=== PATIENT | male | born 1975 | race Caucasian/White ===

== ENCOUNTER 2017-02-05 16:49 | Observation (INO) | payer SELFPAY ==
[~2017-02-05] VITALS: Ht 172.7 cm; Wt 82.0 kg
[~2017-02-05 16:49] MED LIST: Z.0.NO CURRENT MEDS
[2017-02-05 17:08] VITALS: BP 158/108; PULSE 92; RESP 18; TEMP 98.5; O2SAT 98
--- NOTE | 2017-02-05 18:22 | PD ---
HPI Chief Complaint: Psychiatric Symptoms Time Seen by Provider: 18:16 Travel History International Travel<30 days: No Contact w/Intl Traveler<30days: No History of Present Illness HPI 41-year-old male presents to the emergency department as a transfer from [facility] for psychiatric evaluation. Patient was placed under a Carvalho act by the physician there. According to the patient, he has been having rectal bleeding for the past 2 days. He states they did not work him up for this. He states that he started with some epigastric pain that radiates to the right lower quadrant 2 days ago. He states that he was drinking for the past 2 days heavily to help with the pain. He denies any suicidal ideations to me stating that he was joking when he said "how much alcohol will it take to kill me". The patient does report some bright red and dark red bleeding from the rectum for 2 days. He states he has not had this before. He does not take NSAIDs as he states he is allergic to him. He states that he does not typically drink heavily and this was a rare occurrence. He denies any fevers or chills. No chest pain or shortness of breath. Platelets of 9 out of 10 epigastric abdominal pain that radiates to the right lower quadrant with associated nausea and vomiting. He states that his vomit looks different is unsure if he could have blood in it as well. The patient reports multiple allergies including to most pain medications as well as IV contrast. Severity is moderate. No exacerbating or alleviating factors. PFSH Past Medical History Cardiac Catheterization: Yes (2004) Musculoskeletal: Yes (WEARS A BRACE TO R KNEE FOR TORN MENISCUS) Past Surgical History Appendectomy: Yes Social History Alcohol Use: Yes (ONCE WEEKLY) Tobacco Use: Yes (1-2 PPD X 22 YEARS) Substance Use: No Allergies-Medications (Allergen,Severity, Reaction): Coded Allergies: Iodinated Contrast- Oral and IV Dye (Verified Allergy, Unknown, 02/05/17) NSAIDS (Non-Steroidal Anti-Inflamma (Verified Allergy, Unknown, 02/05/17) carbamazepine (Verified Allergy, Unknown, Swelling, 02/05/17) dicyclomine (Verified Allergy, Unknown, Swelling, 02/05/17) divalproex sodium (Verified Allergy, Unknown, Rash, 02/05/17) ketorolac (Verified Allergy, Unknown, Swelling, 02/05/17) levetiracetam (Verified Allergy, Unknown, Swelling, 02/05/17) metronidazole (Verified Allergy, Unknown, Rash, 02/05/17) morphine (Verified Allergy, Unknown, Rash, 02/05/17) nalbuphine (Verified Allergy, Unknown, Swelling, 02/05/17) phenobarbital (Verified Allergy, Unknown, Swelling, 02/05/17) phenytoin (Verified Allergy, Unknown, vomiting, 02/05/17) prochlorperazine (Verified Allergy, Unknown, Swelling, 02/05/17) tramadol (Verified Allergy, Unknown, Rash, 02/05/17) Reported Meds & Prescriptions Reported Meds & Active Scripts Active Reported No Current Meds (Miscellaneous Medication) Misc Review of Systems Except as stated in HPI: all other systems reviewed are Neg Physical Exam Narrative GENERAL: Well-nourished, well-developed male patient, afebrile. SKIN: Focused skin assessment warm/dry. HEAD: Normocephalic. Atraumatic. EYES: No scleral icterus. No injection or drainage. NECK: Supple, trachea midline. No JVD or lymphadenopathy. CARDIOVASCULAR: Regular rate and rhythm without murmurs, gallops, or rubs. RESPIRATORY: Breath sounds equal bilaterally. No accessory muscle use. Lungs sounds are clear to auscultation. GASTROINTESTINAL: Abdomen soft and nondistended. He has tenderness throughout the abdomen upon palpation. MUSCULOSKELETAL: No cyanosis, or edema. BACK: Nontender without obvious deformity. No CVA tenderness. RECTAL EXAM: No masses or tenderness. This exam was done with RN at bedside. Hemoccult is positive. Data Data Last Documented VS Vital Signs Date Time Temp Pulse Resp B/P (MAP) Pulse Ox O2 Delivery O2 Flow Rate FiO2 02/05/17 19:27 88 16 169/112 (131) 99 Room Air 02/05/17 17:08 98.5 Orders Orders Complete Blood Count With Diff (02/05/17 18:16) Comprehensive Metabolic Panel (02/05/17 18:16) Lipase (02/05/17 18:16) Prothrombin Time / Inr (Pt) (02/05/17 18:16) Act Partial Throm Time (Ptt) (02/05/17 18:16) Urinalysis - C+S If Indicated (02/05/17 18:16) Ct Abd/Pel W/O Iv Contrast (02/05/17 18:16) Iv Access Insert/Monitor (02/05/17 18:16) Ecg Monitoring (02/05/17 18:16) Oximetry (02/05/17 18:16) Pantoprazole Inj (Protonix Inj) (02/05/17 18:30) Sodium Chloride 0.9% Flush (Ns Flush) (02/05/17 18:30) Electrocardiogram (02/05/17 18:16) Sodium Chlor 0.9% 1000 Ml Inj (Ns 1000 M (02/05/17 18:30) Alcohol (Ethanol) (02/05/17 18:22) Acetamin-Hydrocod 325-5 Mg (Bartley 5-325 (02/05/17 19:45) Ondansetron Inj (Zofran Inj) (02/05/17 20:45) Admit Order (Ed Use Only) (02/05/17 20:56) ^ Sitter (02/05/17 20:56) Labs Laboratory Tests Test 02/05/17 18:30 02/05/17 19:30 White Blood Count 5.1 TH/MM3 Red Blood Count 4.02 MIL/MM3 Hemoglobin 10.5 GM/DL Hematocrit 31.1 % Mean Corpuscular Volume 77.5 FL Mean Corpuscular Hemoglobin 26.2 PG Mean Corpuscular Hemoglobin Concent 33.8 % Red Cell Distribution Width 18.4 % Platelet Count 409 TH/MM3 Mean Platelet Volume 7.5 FL Neutrophils (%) (Auto) 54.9 % Lymphocytes (%) (Auto) 33.3 % Monocytes (%) (Auto) 8.9 % Eosinophils (%) (Auto) 1.6 % Basophils (%) (Auto) 1.3 % Neutrophils # (Auto) 2.8 TH/MM3 Lymphocytes # (Auto) 1.7 TH/MM3 Monocytes # (Auto) 0.4 TH/MM3 Eosinophils # (Auto) 0.1 TH/MM3 Basophils # (Auto) 0.1 TH/MM3 CBC Comment DIFF FINAL Differential Comment Prothrombin Time 9.7 SEC Prothromb Time International Ratio 0.9 RATIO Activated Partial Thromboplast Time 25.0 SEC Blood Urea Nitrogen 12 MG/DL Creatinine 0.92 MG/DL Random Glucose 103 MG/DL Total Protein 7.1 GM/DL Albumin 3.7 GM/DL Calcium Level 8.6 MG/DL Alkaline Phosphatase 99 U/L Aspartate Amino Transf (AST/SGOT) 33 U/L Alanine Aminotransferase (ALT/SGPT) 49 U/L Total Bilirubin 0.3 MG/DL Sodium Level 136 MEQ/L Potassium Level 3.9 MEQ/L Chloride Level 104 MEQ/L Carbon Dioxide Level 23.8 MEQ/L Anion Gap 8 MEQ/L Estimat Glomerular Filtration Rate 91 ML/MIN Lipase 370 U/L Ethyl Alcohol Level LESS THAN 3 MG/DL Urine Color LIGHT-YELLOW Urine Turbidity CLEAR Urine pH 6.5 Urine Specific [place] 1.015 Urine Protein NEG mg/dL Urine Glucose (UA) NEG mg/dL Urine Ketones NEG mg/dL Urine Occult Blood NEG Urine Nitrite NEG Urine Bilirubin NEG Urine Urobilinogen LESS THAN 2.0 MG/DL Urine Leukocyte Esterase NEG Urine RBC 1 /hpf Urine WBC 1 /hpf Urine Amorphous Sediment RARE Microscopic Urinalysis Comment CULT NOT INDICATED MDM Medical Decision Making Medical Screen Exam Complete: Yes Emergency Medical Condition: Yes Medical Record Reviewed: Yes Interpretation(s) Last Impressions Abdomen/Pelvis CT 02/05/171815 Signed Impressions: Service Date/Time: Friday, February 05, 2017 19:03 - CONCLUSION: 1. Numerous bilateral hyperdense round lesions in both kidneys measuring up to 1.4 cm could represent hyperdense cysts or solid lesions. 2. Otherwise negative noncontrast CT abdomen/pelvis. Demetrio Mcgowan MD Differential Diagnosis Lower GI bleed versus upper GI bleed versus pancreatitis versus diverticulitis Narrative Course 41-year-old male presents to the emergency department as a transfer from [facility]. However, he states has been having rectal bleeding and epigastric abdominal pain for 2 days. He states that he told the other hospital pelvis, but they did not work him up for it. IV is established. EKG, CBC, CMP, lipase, PTT, PT/INR, UA, alcohol level are ordered and pending. CT abdomen/pelvis without contrast is ordered and pending. Patient is continuously requesting pain medication. He is allergic to most pain medications. I did order Lortab 5/325 mg which he declined stating that he wants something IV. However, patient is allergic to most pain medications and anti-inflammatories. EKG shows sinus rhythm, heart rate 81, no acute ST changes. CBC shows hemoglobin 10.5, hematocrit 31.1. CMP is unremarkable. Lipase is 370. Coags show no acute abnormality. Alcohol level is less than 3. UA is negative. CT abdomen/pelvis shows numerous bilateral hyperdense round lesions in both kidneys measuring up to 1.4 cm, could represent hyperdense cyst or solid lesions , otherwise negative noncontrast CT abdomen/pelvis. Patient is continuously requesting narcotic pain medication. He still declines the Lortab, but is requesting IV narcotic pain medication. I do not think this is appropriate intervention at this time I did discuss this with the patient who is agitated and angry at my decision. Dr. Trejo accepted admission. [facility] Point of Care Internal Pos. & Neg. Controls: Passed Fecal Specimen Occult Blood: Positive Diagnosis Primary Impression: GI bleed Qualified Codes: K92.2 - Gastrointestinal hemorrhage, unspecified Additional Impression: Suicidal ideation Admitting Information Admitting Physician Requests: Observation Caprice Potts Feb 05, 2017 18:22
[2017-02-05] MEDS ORDERED: SODIUM CHLORIDE 0.9% FLUSH 10 ML FLUSH IV FLUSH PRN (18:30)
[2017-02-05] MEDS ORDERED: PANTOPRAZOLE SODIUM 40 MG VIAL IVP ONE (18:30)
[2017-02-05] MEDS ORDERED: SODIUM CHLOR 0.9% 1000 ML INJ 1,000 ML IV ONE (18:30)
[2017-02-05 18:39] VITALS: BP 163/89; PULSE 88; RESP 16; O2SAT 97; O2SAT 98
--- NOTE | 2017-02-05 19:26 | RADRPT ---
EXAM DATE/TIME: 02/05/2017 19:03 [place] COMPARISON: No previous studies available for comparison. INDICATIONS : Diffuse abdomen pain for one day. ORAL CONTRAST: No oral contrast ingested. RADIATION DOSE: 10.21 CTDIvol (mGy) MEDICAL HISTORY : Pancreatitis. SURGICAL HISTORY : Appendectomy. Cardiac cath. ENCOUNTER: Initial ACUITY: 1 day PAIN SCALE: 7/10 LOCATION: Bilateral upper quadrant TECHNIQUE: Volumetric scanning of the abdomen and pelvis was performed. Using automated exposure control and ad justment of the mA and/or kV according to patient size, radiation dose was kept as low as reasonably achievable to obtain optimal diagnostic quality images. DICOM format image data is available electro nically for review and comparison. FINDINGS: LOWER LUNGS: The visualized lower lungs are clear. LIVER: Homogeneous density without lesion or noncontrast technique. There is no dilation of the biliary dede e. Cholecystectomy. SPLEEN: Normal size without lesion. PANCREAS: Within normal limits. KIDNEYS: No evidence of hydronephrosis. No calcified renal stones. Both ureters are normal in dimension. Th ere are multiple bilateral round hyperdense lesions in both kidneys measuring up to 1.[address] density of 73 Hounsfield units. There is also one low density lesion in the cortex of the midpole of the left kidney measuring 12 mm. ADRENAL GLANDS: Within normal limits. VASCULAR: There is no aortic aneurysm. BOWEL/MESENTERY: No dilated loops of small or large bowel. ABDOMINAL WALL: Within normal limits. RETROPERITONEUM: There is no lymphadenopathy. BLADDER: No wall thickening or mass. REPRODUCTIVE: Within normal limits. INGUINAL: There is no lymphadenopathy or hernia. MUSCULOSKELETAL: Within normal limits for patient age. CONCLUSION: 1. Numerous bilateral hyperdense round lesions in both kidneys measuring up to 1.4 cm could represent hyperdense cysts or solid lesions. 2. Otherwise negative noncontrast CT abdomen/pelvis. Demetrio Mcgowan MD on February 05, 2017 at 19:21 Board Certified Radiologist. This report was verified electronically.
[2017-02-05 19:27] VITALS: BP 169/112; PULSE 88; RESP 16; O2SAT 99
[2017-02-05] MEDS ORDERED: ACETAMINOPHEN/HYDROcodone 325 MG/5 MG TAB PO ONE (19:45)
[2017-02-05 19:47] LABS: BLOOD, URINE NEG (NEG); COMMENT (UR) CULT NOT INDICATED; CULTURE IF INDICATED CULT NOT INDICATED; GLUCOSE,URINE NEG (NEG); KETONE, URINE NEG (NEG); NITRITE,URINE NEG (NEG); PH, URINE 6.5 (5.0-8.5); URINE COLOR LIGHT-YELLOW (YELLW/STRAW)
[2017-02-05 19:48] LABS: AUTOMATED NEUTROPHIL # 2.8 TH/MM3 (1.8-7.7); BASOPHIL # 0.1 TH/MM3 (0-0.2); BASOPHIL % 1.3 % (0.0-2.0); EOSINOPHIL # 0.1 TH/MM3 (0-0.4); EOSINOPHIL % 1.6 % (0.0-4.0); HEMATOCRIT 31.1 % (39.0-51.0); HEMO FLAGS DIFF FINAL; LYMPH % 33.3 % (9.0-44.0); LYMPHOCYTE # 1.7 TH/MM3 (1.0-4.8); MEAN CELL VOLUME 77.5 FL (80.0-100.0); MEAN CORPUSCULAR HEMOGLOBIN 26.2 PG (27.0-34.0); MEAN CORPUSCULAR HGB CONC 33.8 % (32.0-36.0); MONO % 8.9 % (0.0-8.0); NEUT % 54.9 % (16.0-70.0); PLATELET COUNT 409 TH/MM3 (150-450); RED BLOOD COUNT 4.02 MIL/MM3 (4.50-5.90); RED CELL DISTRIBUTION WIDTH 18.4 % (11.6-17.2); WHITE BLOOD COUNT 5.1 TH/MM3 (4.0-11.0)
[2017-02-05 20:02] LABS: INTERNATIONAL NORMALIZED RATIO 0.9 RATIO; PROTHROMBIN TIME - PATIENT 9.7 SEC (9.8-11.6)
[2017-02-05 20:10] LABS: ALT (GPT) 49 U/L (12-78)
[2017-02-05 20:13] LABS: ALKALINE PHOSPHATASE 99 U/L (45-117); TOTAL BILIRUBIN ADULT 0.3 MG/DL (0.2-1.0)
[2017-02-05 20:18] LABS: ANION GAP 8 MEQ/L (5-15); AST (GOT) 33 U/L (15-37); BICARBONATE 23.8 MEQ/L (21.0-32.0); BLOOD UREA NITROGEN 12 MG/DL (7-18); CHLORIDE 104 MEQ/L (98-107); GLOMERULAR FILTRATION RATE 91 ML/MIN (>89); POTASSIUM 3.9 MEQ/L (3.5-5.1); SODIUM (NA) 136 MEQ/L (136-145)
[2017-02-05] MEDS ORDERED: ONDANSETRON HCL 4 MG/2 ML VIAL IV PUSH ONE (20:45)
[2017-02-05] MEDS: SODIUM CHLOR 0.9% 1000 ML INJ 1,000 ML IV SCH (22:05)
[2017-02-05] MEDS ORDERED: LACTULOSE SYRUP 20 GM/30 ML CUP PO PRN (22:15)
[2017-02-05] MEDS ORDERED: MAGNESIUM HYDROXIDE SUSP 30 ML CUP PO PRN (22:15)
[2017-02-05] MEDS ORDERED: BISACODYL 10 MG SUPP RECTAL PRN (22:15)
[2017-02-05] MEDS ORDERED: LORazepam 1 MG TAB PO PRN (22:15)
[2017-02-05] MEDS ORDERED: FLUMAZENIL 0.5 MG/5 ML VIAL IV PUSH PRN (22:15)
[2017-02-05] MEDS ORDERED: LORazepam 2 MG TAB PO PRN (22:15)
[2017-02-05] MEDS ORDERED: NALOXONE HCL 0.4 MG/ML AMP IV PUSH PRN (22:15)
[2017-02-05] MEDS ORDERED: LORazepam 2 MG/ML VIAL IV PUSH PRN ×4 (22:15)
[2017-02-05] MEDS ORDERED: SENNOSIDES 8.6 MG TAB PO PRN (22:15)
[2017-02-05] MEDS ORDERED: ACETAMINOPHEN 325 MG TAB PO PRN (22:15)
[2017-02-05] MEDS ORDERED: ONDANSETRON HCL 4 MG/2 ML VIAL IVP PRN (22:15)
--- NOTE | 2017-02-05 22:19 | HHI.HP ---
HPI Service [facility] Hospitalists Primary Care Physician No Primary Care Physician Admission Diagnosis GI bleed, Carvalho Act Diagnoses: Travel History International Travel<30 Days: No Contact w/Intl Traveler <30 Da: No History of Present Illness 41-year-old male presents to the emergency department under Carvalho act. The patient reportedly told a friend that he wanted to see how much he could drink until he and was taken to [facility] where he was placed under a Carvalho act. The patient reports he has a history of chronic pancreatitis and hepatitis C heavily for the past 2 days to "kill the pain." The patient was [place] [facility] complained of hematemesis and bloody stools as it was brought to the emergency department for evaluation. He reports a 2 day history of coffee-ground emesis and large volumes of blood in his stools. H&H 10.5/31.1. Patient was Hemoccult positive in the emergency department. He complains of severe abdominal pain and has voluntary guarding on physical exam. His pain is worse in the upper quadrants. He reports that he has never had a colonoscopy and that his father of colorectal cancer. CT of the abdomen and pelvis significant only for bilateral kidney lesions. Review of Systems Denies fever or chills Denies blurry vision, otorrhea, rhinorrhea Denies sore throat and cough No chest pain, palpitations, shortness of breath Positive abdominal pain Positive emesis and nausea. Denies diarrhea and constipation. Endorses bloody stools. Denies muscle pain/weakness No rashes Past Family Social History Past Medical History Chronic pancreatitis COPD Past Surgical History Cholecystectomy Appendectomy Facial reconstruction status post trauma Reported Medications Reported Meds & Active Scripts Active Reported No Current Meds (Miscellaneous Medication) Misc Allergies: Coded Allergies: Iodinated Contrast- Oral and IV Dye (Verified Allergy, Unknown, 02/05/17) NSAIDS (Non-Steroidal Anti-Inflamma (Verified Allergy, Unknown, 02/05/17) carbamazepine (Verified Allergy, Unknown, Swelling, 02/05/17) dicyclomine (Verified Allergy, Unknown, Swelling, 02/05/17) divalproex sodium (Verified Allergy, Unknown, Rash, 02/05/17) ketorolac (Verified Allergy, Unknown, Swelling, 02/05/17) levetiracetam (Verified Allergy, Unknown, Swelling, 02/05/17) metronidazole (Verified Allergy, Unknown, Rash, 02/05/17) morphine (Verified Allergy, Unknown, Rash, 02/05/17) nalbuphine (Verified Allergy, Unknown, Swelling, 02/05/17) phenobarbital (Verified Allergy, Unknown, Swelling, 02/05/17) phenytoin (Verified Allergy, Unknown, vomiting, 02/05/17) prochlorperazine (Verified Allergy, Unknown, Swelling, 02/05/17) tramadol (Verified Allergy, Unknown, Rash, 02/05/17) Family History Father of colorectal cancer. Mother's history unknown. Social History Patient reports he drinks occasionally except for the past 2 days when he was drinking as much as he could. Smokes 1 pack per day 30 years. Positive marijuana. Denies other illicit drugs. Physical Exam Vital Signs Vital Signs Date Time Temp Pulse Resp B/P (MAP) Pulse Ox O2 Delivery O2 Flow Rate FiO2 02/05/17 21:40 02/05/17 19:27 88 16 169/112 (131) 99 Room Air 02/05/17 18:39 88 16 163/89 (113) 97 Room Air 02/05/17 18:39 88 16 163/89 (113) 98 Room Air 02/05/17 17:08 98.5 92 18 158/108 (125) 98 Room Air Physical Exam GENERAL: Disheveled, male sitting up in bed SKIN: No rashes, ecchymoses or lesions. Cool and dry. HEAD: Atraumatic. Normocephalic. No temporal or scalp tenderness. EYES: Pupils equal round and reactive. Extraocular motions intact. No scleral icterus. No injection or drainage. ENT: Nose without bleeding, purulent drainage or septal hematoma. Throat without erythema, tonsillar hypertrophy or exudate. Uvula midline. Airway patent. NECK: Trachea midline. No JVD or lymphadenopathy. Supple, nontender, no meningeal signs. CARDIOVASCULAR: Regular rate and rhythm without murmurs, gallops, or rubs. RESPIRATORY: Clear to auscultation. Breath sounds equal bilaterally. No wheezes , rales, or rhonchi. GASTROINTESTINAL: Abdomen soft, nondistended. Exquisitely tender to palpation worse in the upper quadrants. Voluntary guarding. MUSCULOSKELETAL: Extremities without clubbing, cyanosis, or edema. No joint tenderness, effusion, or edema noted. No calf tenderness. Negative Homans sign bilaterally. NEUROLOGICAL: Awake and alert. Cranial nerves II through XII intact. Motor and sensory grossly within normal limits. Normal speech. Laboratory Laboratory Tests Test 02/05/17 18:30 02/05/17 19:30 White Blood Count 5.1 Red Blood Count 4.02 Hemoglobin 10.5 Hematocrit 31.1 Mean Corpuscular Volume 77.5 Mean Corpuscular Hemoglobin 26.2 Mean Corpuscular Hemoglobin Concent 33.8 Red Cell Distribution Width 18.4 Platelet Count 409 Mean Platelet Volume 7.5 Neutrophils (%) (Auto) 54.9 Lymphocytes (%) (Auto) 33.3 Monocytes (%) (Auto) 8.9 Eosinophils (%) (Auto) 1.6 Basophils (%) (Auto) 1.3 Neutrophils # (Auto) 2.8 Lymphocytes # (Auto) 1.7 Monocytes # (Auto) 0.4 Eosinophils # (Auto) 0.1 Basophils # (Auto) 0.1 CBC Comment DIFF FINAL Differential Comment Prothrombin Time 9.7 Prothromb Time International Ratio 0.9 Activated Partial Thromboplast Time 25.0 Blood Urea Nitrogen 12 Creatinine 0.92 Random Glucose 103 Total Protein 7.1 Albumin 3.7 Calcium Level 8.6 Alkaline Phosphatase 99 Aspartate Amino Transf (AST/SGOT) 33 Alanine Aminotransferase (ALT/SGPT) 49 Total Bilirubin 0.3 Sodium Level 136 Potassium Level 3.9 Chloride Level 104 Carbon Dioxide Level 23.8 Anion Gap 8 Estimat Glomerular Filtration Rate 91 Lipase 370 Ethyl Alcohol Level LESS THAN 3 Urine Color LIGHT-YELLOW Urine Turbidity CLEAR Urine pH 6.5 Urine Specific [place] 1.015 Urine Protein NEG Urine Glucose (UA) NEG Urine Ketones NEG Urine Occult Blood NEG Urine Nitrite NEG Urine Bilirubin NEG Urine Urobilinogen LESS THAN 2.0 Urine Leukocyte Esterase NEG Urine RBC 1 Urine WBC 1 Urine Amorphous Sediment RARE Microscopic Urinalysis Comment CULT NOT INDICATED Result Diagram: 02/05/17182902/05/171829 Caprini VTE Risk Assessment Caprini VTE Risk Assessment: No/Low Risk (score <= 1) Caprini Risk Assessment Model Point Value = 1 Point Value = 2 Point Value = 3 Point Value = 5 Age 41-60 Minor surgery BMI > 25 kg/m2 Swollen legs Varicose veins or History of unexplained or recurrent spontaneous Oral contraceptives or hormone replacement Sepsis (< 1 month) Serious lung disease, including pneumonia (< 1 month) Abnormal pulmonary function Acute myocardial infarction Congestive heart failure (< 1 month) History of inflammatory bowel disease Medical patient at bed rest Age 61-74 Arthroscopic surgery Major open surgery (> 45 min) Laparoscopic surgery (> 45 min) Malignancy Confined to bed (> 72 hours) Immobilizing plaster cast Central venous access Age >= 75 History of VTE Family history of VTE Factor V Leiden Prothrombin [id number] Lupus anticoagulant Anticardiolipin antibodies Elevated serum homocysteine Heparin-induced thrombocytopenia Other congenital or acquired thrombophilia Stroke (< 1 month) Elective arthroplasty Hip, pelvis, or leg fracture Acute spinal cord injury (< 1 month) Prophylaxis Regimen Total Risk Factor Score Risk Level Prophylaxis Regimen 0-1 Low Early ambulation 2 Moderate Order ONE of the following: *Sequential Compression Device (SCD) *Heparin 5000 units SQ BID 3-4 Higher Order ONE of the following medications: *Heparin 5000 units SQ TID *Enoxaparin/Lovenox 40 mg SQ daily (WT < 150 kg, CrCl > 30 mL/min) *Enoxaparin/Lovenox 30 mg SQ daily (WT < 150 kg, CrCl > 10-29 mL/min) *Enoxaparin/Lovenox 30 mg SQ BID (WT < 150 kg, CrCl > 30 mL/min) AND/OR *Sequential Compression Device (SCD) 5 or more Highest Order ONE of the following medications: *Heparin 5000 units SQ TID (Preferred with Epidurals) *Enoxaparin/Lovenox 40 mg SQ daily (WT < 150 kg, CrCl > 30 mL/min) *Enoxaparin/Lovenox 30 mg SQ daily (WT < 150 kg, CrCl > 10-29 mL/min) *Enoxaparin/Lovenox 30 mg SQ BID (WT < 150 kg, CrCl > 30 mL/min) AND *Sequential Compression Device (SCD) Assessment and Plan Assessment and Plan 41-year-old male presents under Carvalho act with a complaint of 2 day history of coffee-ground emesis and bloody stools. 1. GI bleed/hematemesis/bloody stools/abdominal pain Hemoccult positive in the ED Nothing by mouth Gastroenterology consulted, appreciate recommendations Trend H&H, transfuse prn IV Protonix Percocet for pain 2. Suicidal ideation Patient denies SI at this time Currently under Carvalho act Psychiatry consulted FEN NPO NS at 100 cc/hr Electrolytes: Monitor and replete when necessary Holding anticoagulation at this time for possible GI bleed SCDs Case discussed with ER PA at length Mayra Trejo MD Feb 05, 2017 22:19
[2017-02-05 23:50] VITALS: BP 157/100; PULSE 78; RESP 20; TEMP 97.9; O2SAT 99
[2017-02-06 03:44] VITALS: BP 159/94; PULSE 76; RESP 20; O2SAT 98
[2017-02-06] MEDS: oxyCODONE/ACETAMINOPHEN 5 MG/325 MG TAB PO PRN ×3 (05:14→16:36)
[2017-02-06 07:28] VITALS: BP 132/76; PULSE 72; RESP 20; TEMP 98.7; O2SAT 97
[2017-02-06] MEDS: SODIUM CHLORIDE 0.9% FLUSH 10 ML FLUSH IV FLUSH SCH ×2 (09:00→19:52)
[2017-02-06] MEDS: PANTOPRAZOLE SODIUM 40 MG VIAL IV PUSH SCH (09:42)
[2017-02-06] MEDS: DOCUSATE SODIUM 50 MG/SENNA 8.6 MG TAB PO SCH ×2 (09:43→19:53)
[2017-02-06] MEDS: SODIUM CHLOR 0.9% 1000 ML INJ 1,000 ML IV SCH ×2 (09:54→18:05)
--- NOTE | 2017-02-06 10:12 | PD.PSY.CON ---
Provisional Diagnosis Admission Date Feb 05, 2017 at 20:57 [place] I. Alcohol induced mood disorder, alcohol use disorder, cannabis use disorder, history of depression [place] II. Deferred [place] III. GI bleeding [place] IV. Alcohol use disorder [place] V. 55 History of Present Illness Service Psychiatry Consult Requested By ER team Reason for Consult Suicidal statements Primary Care Physician No Primary Care Physician HPI The patient is a 41-year-old man, domiciled alone in [place], unemployed, , service connected, supported by disability, with psychiatric history of depression, 2 remote psychiatric hospitalizations, 2 previous suicidal attempts in his adolescence, no outpatient care, no medications at the moment, alcohol and cannabis use disorder, medical history of pancreatitis, pancreatitis, GI bleeding, who presents to the emergency department under Carvalho act. The patient reportedly told a friend that he wanted to see how much he could drink until he and was taken to [facility] where he was placed under a Carvalho act. The patient was transferred to inpatient psychiatry at [facility] where he complained of hematemesis and bloody stools as it was brought to the emergency department for evaluation. He reports a 2 day history of coffee-ground emesis and large volumes of blood in his stools. H&H 10.5/31.1. Patient was Hemoccult positive in the emergency department. He complains of severe abdominal pain and has voluntary guarding on physical exam. His pain is worse in the upper quadrants. He reports that he has never had a colonoscopy and that his father of colorectal cancer. CT of the abdomen and pelvis significant only for bilateral kidney lesions. Consulted to psychiatry to assess suicidal ideation. On psychiatric evaluation today the patient is calm, cooperative and pleasant. Patient says that he has been in a hurry to see me because he wants his Carvalho act to be lifted. Patient says that he was Carvalho acted by mistake and it was a misunderstood. He says that when he was drunk he told somebody that "how would feel to drinking" but he says that he did not mean that he wanted to kill himself. He says that he was just drunk. Patient says that he has been drinking for 2 days to treat abdominal pain. He was sober for many weeks before this two days binge. He is now clinically sober. He denies depressive symptoms, he denies anxiety, he denies lenin and psychosis. The patient denies suicidal and homicidal ideation , he denies visual and auditory hallucinations. As per sitter and nurse in charge he has been very calm, talkative, without any agitation or violence reported. Patient reports that he is motivated to continue his medical treatment and has his GI bleeding treated. She is future oriented, he is able to share goals for the future. Oriented 3. He reports occasional use of alcohol and almost daily use of marijuana. Review of Systems Constitutional: DENIES: Diaphoretic episodes, Fatigue, Fever, Weight gain, Weight loss, Chills, Dizziness, Change in appetite, Night Sweats Endocrine: DENIES: Heat/cold intolerance, Polydipsia, Polyuria, Polyphagia Eyes: DENIES: Blurred vision, Diplopia, Eye inflammation, Eye pain, Vision loss , Photosensitivity, Double Vision Ears, nose, mouth, throat: DENIES: Tinnitus, Hearing loss, Vertigo, Nasal discharge, Oral lesions, Throat pain, Hoarseness, Ear Pain, Running Nose, Epistaxis, Sinus Pain, Toothache, Odynophagia Respiratory: DENIES: Apneas, Cough, Snoring, Wheezing, Hemoptysis, Sputum production, Shortness of breath Cardiovascular: DENIES: Chest pain, Palpitations, Syncope, Dyspnea on Exertion , PND, Lower Extremity Edema, Orthopnea, Claudication Gastrointestinal: COMPLAINS OF: Abdominal pain, Bloody stools Genitourinary: DENIES: Sexual dysfunction, Urinary frequency, Urinary incontinence, Urgency, Hematuria, Dysuria, Nocturia, Penile Discharge, Testicular Pain, Testicular Swelling Musculoskeletal: DENIES: Joint pain, Muscle aches, Stiffness, Joint Swelling, Back pain, Neck pain Integumentary: DENIES: Abnormal pigmentation, Nail changes, Pruritus, Rash Hematologic/lymphatic: DENIES: Bruising, Lymphadenopathy Immunologic/allergic: DENIES: Eczema, Urticaria Neurologic: DENIES: Abnormal gait, Headache, Localized weakness, Paresthesias, Seizures, Speech Problems, Tremor, Poor Balance Psychiatric: DENIES: Anxiety, Confusion, Mood changes, Depression, Hallucinations, Agitation, Suicidal Ideation, Homicidal Ideation, Delusions Past Family Social History Coded Allergies: Iodinated Contrast- Oral and IV Dye (Verified Allergy, Unknown, 02/05/17) NSAIDS (Non-Steroidal Anti-Inflamma (Verified Allergy, Unknown, 02/05/17) carbamazepine (Verified Allergy, Unknown, Swelling, 02/05/17) dicyclomine (Verified Allergy, Unknown, Swelling, 02/05/17) divalproex sodium (Verified Allergy, Unknown, Rash, 02/05/17) ketorolac (Verified Allergy, Unknown, Swelling, 02/05/17) levetiracetam (Verified Allergy, Unknown, Swelling, 02/05/17) metronidazole (Verified Allergy, Unknown, Rash, 02/05/17) morphine (Verified Allergy, Unknown, Rash, 02/05/17) nalbuphine (Verified Allergy, Unknown, Swelling, 02/05/17) phenobarbital (Verified Allergy, Unknown, Swelling, 02/05/17) phenytoin (Verified Allergy, Unknown, vomiting, 02/05/17) prochlorperazine (Verified Allergy, Unknown, Swelling, 02/05/17) tramadol (Verified Allergy, Unknown, Rash, 02/05/17) Reported Medications Miscellaneous (No Current Meds) [facility] Current Medications Medications (Trade) Dose Ordered Sig/Shanice Route Start Time Stop Time Status Last Admin Sodium Chloride 1,000 ml @ 100 mls/hr Q10H IV 02/05/17 22:05 02/06/17 09:54 (NS Flush) 2 ml UNSCH PRN IV FLUSH 02/05/17 22:15 (NS Flush) 2 ml BID IV FLUSH 02/06/17 09:00 (Tylenol) 650 mg Q4H PRN PO 02/05/17 22:15 (Zofran Inj) 4 mg Q6H PRN IVP 02/05/17 22:15 (Narcan Inj) 0.4 mg UNSCH PRN IV PUSH 02/05/17 22:15 (Miladis-Colace) 1 tab BID PO 02/06/17 09:00 02/06/17 09:43 (Milk Of Magnesia Liq) 30 ml Q12H PRN PO 02/05/17 22:15 (Senokot) 17.2 mg Q12H PRN PO 02/05/17 22:15 (Dulcolax Supp) 10 mg DAILY PRN RECTAL 02/05/17 22:15 (Lactulose Liq) 30 ml DAILY PRN PO 02/05/17 22:15 (Romazicon Inj) 0.2 mg Q1M PRN IV PUSH 02/05/17 22:15 (Ativan) 1 mg Q4H PRN PO 02/05/17 22:15 02/06/17 00:03 (Ativan Inj) 1 mg Q4H PRN IV PUSH 02/05/17 22:15 (Ativan) 2 mg Q2H PRN PO 02/05/17 22:15 (Ativan Inj) 2 mg Q2H PRN IV PUSH 02/05/17 22:15 (Ativan Inj) 2 mg Q1H PRN IV PUSH 02/05/17 22:15 (Ativan Inj) 2 mg Q15M PRN IV PUSH 02/05/17 22:15 (Percocet 5-325 Mg) 1 tab Q4H PRN PO 02/05/17 22:15 02/06/17 09:42 (Protonix Inj) 40 mg Q24H IV PUSH 02/06/17 09:00 02/06/17 09:42 Family Psych History He denies family psychiatric history Social History Patient was born and raised in [place], he lives alone in [place], he is , unemployed, supported by [employer], his highest level of education is some college. Patient's Strengths (min. 2) Service-connected with the [facility]. Physical Exam No tremors, no EPS, no acute withdrawal, no psychomotor agitation retardation present. Vital Signs Vital Signs Date Time Temp Pulse Resp B/P (MAP) Pulse Ox O2 Delivery O2 Flow Rate FiO2 02/06/17 07:28 98.7 72 20 132/76 (94) 97 02/05/17 19:27 Room Air Lab Results Test 02/05/17 18:30 02/05/17 19:30 White Blood Count 5.1 TH/MM3 Red Blood Count 4.02 MIL/MM3 Hemoglobin 10.5 GM/DL Hematocrit 31.1 % Mean Corpuscular Volume 77.5 FL Mean Corpuscular Hemoglobin 26.2 PG Mean Corpuscular Hemoglobin Concent 33.8 % Red Cell Distribution Width 18.4 % Platelet Count 409 TH/MM3 Mean Platelet Volume 7.5 FL Neutrophils (%) (Auto) 54.9 % Lymphocytes (%) (Auto) 33.3 % Monocytes (%) (Auto) 8.9 % Eosinophils (%) (Auto) 1.6 % Basophils (%) (Auto) 1.3 % Neutrophils # (Auto) 2.8 TH/MM3 Lymphocytes # (Auto) 1.7 TH/MM3 Monocytes # (Auto) 0.4 TH/MM3 Eosinophils # (Auto) 0.1 TH/MM3 Basophils # (Auto) 0.1 TH/MM3 CBC Comment DIFF FINAL Differential Comment Prothrombin Time 9.7 SEC Prothromb Time International Ratio 0.9 RATIO Activated Partial Thromboplast Time 25.0 SEC Blood Urea Nitrogen 12 MG/DL Creatinine 0.92 MG/DL Random Glucose 103 MG/DL Total Protein 7.1 GM/DL Albumin 3.7 GM/DL Calcium Level 8.6 MG/DL Alkaline Phosphatase 99 U/L Aspartate Amino Transf (AST/SGOT) 33 U/L Alanine Aminotransferase (ALT/SGPT) 49 U/L Total Bilirubin 0.3 MG/DL Sodium Level 136 MEQ/L Potassium Level 3.9 MEQ/L Chloride Level 104 MEQ/L Carbon Dioxide Level 23.8 MEQ/L Anion Gap 8 MEQ/L Estimat Glomerular Filtration Rate 91 ML/MIN Lipase 370 U/L Ethyl Alcohol Level LESS THAN 3 MG/DL Urine Color LIGHT-YELLOW Urine Turbidity CLEAR Urine pH 6.5 Urine Specific [place] 1.015 Urine Protein NEG mg/dL Urine Glucose (UA) NEG mg/dL Urine Ketones NEG mg/dL Urine Occult Blood NEG Urine Nitrite NEG Urine Bilirubin NEG Urine Urobilinogen LESS THAN 2.0 MG/DL Urine Leukocyte Esterase NEG Urine RBC 1 /hpf Urine WBC 1 /hpf Urine Amorphous Sediment RARE Microscopic Urinalysis Comment CULT NOT INDICATED Mental Status Examination Appearance: Appropriate Consciousness: Alert Orientation: x4 Motor Activity: Normal gait Speech: Unremarkable Language: Adequate Fund of Knowledge: Adequate Attention and Concentration: Adequate Memory: Unremarkable Mood: Appropriate Affect: Appropriate Thought Process & Associations: Intact Thought Content: Appropriate Hallucination Type: None Delusion Type: None Suicidal Ideation: No Suicidal Plan: No Suicidal Intention: No Homicidal Ideation: No Homicidal Plan: No Homicidal Intention: No Insight: Adequate Judgment: Adequate Assessment & Plan Problem List: (1) Alcohol abuse with alcohol-induced mood disorder ICD Codes: F10.14 - Alcohol abuse with alcohol-induced mood disorder Assessment & Plan: On psychiatric evaluation today the patient does not present any acute, concerning for significant evidence of depressive symptoms, anxiety, lenin or psychosis. She is now clinically sober, he denies suicidal and homicidal ideation, he denies visual and auditory hallucinations. He is logical, coherent and relevant. He is oriented 3. Apparently his recent suicidal statement was the result of acute alcohol intoxication and poor judgment and disorganized thought process related with it. He does not meet criteria for involuntary psychiatric admission at this moment. He is motivated to continue his medical treatment for GI. Continue CIWA protocol. Extensive support, motivational psychoeducation provided. Consult appreciated. Assessment & Plan Estimated LOS: days Manjit Dlalas MD Feb 06, 2017 10:12
--- NOTE | 2017-02-06 10:34 | EKG ---
Date Performed: 02/05/2017 Time Performed: 19:18:47 PTAGE: 41 years EKG: Sinus rhythm NORMAL ECG PREVIOUS TRACING : 08/07/2006 19.29 DOCTOR: Emre Lacy Interpretating Date/Time 02/06/2017 10:32:55
--- NOTE | 2017-02-06 10:48 | PD.CONS ---
HPI History of Present Illness This is a 41 year old male with a history of Hepatitis C and chronic pancreatitis, under a Carvalho Act, who was transferred from [facility] for a psychiatric evaluation. The patient reports a 3-4 day history of rectal bleeding, coffee ground emesis and associated abdominal pain, and that he had been drinking alcohol to help with the pain. The patient notes that he jokingly made the comment "how much alcohol will it take to kill me" but is not having any suicidal ideations. He was subsequently placed under a Carvalho ACT and transferred to this facility for a psychiatric evaluation. He started having RUQ, RLQ pain about 3-4 days ago, that he describes as a constant sharp pain. The pain is worse when he tries to eat, but he states that he has constant pain regardless if he eats or not. He then started having nausea and vomiting with coffee ground emesis. Shortly after he started passing red blood mixed within his black stool (large amount). He denies any heartburn or reflux. Prior to a few days ago, he was eating well with no weight loss. He states that he has had recurrent pancreatitis x 6 years and is s/p cholecystectomy. He reports that he does not normally drink ETOH, but was drinking heavily to try to "numb the pain." He denies any use of NSAIDs. He has never had an EGD/Colonoscopy. He reports that his father is from colon cancer in his 30's. (Kinjal Borrero) PFSH Past Medical History Chronic pancreatitis COPD Hepatitis C Past Surgical History Cholecystectomy Appendectomy Facial reconstruction status post trauma (Kinjal Borrero) Coded Allergies: Iodinated Contrast- Oral and IV Dye (Verified Allergy, Unknown, 02/05/17) NSAIDS (Non-Steroidal Anti-Inflamma (Verified Allergy, Unknown, 02/05/17) carbamazepine (Verified Allergy, Unknown, Swelling, 02/05/17) dicyclomine (Verified Allergy, Unknown, Swelling, 02/05/17) divalproex sodium (Verified Allergy, Unknown, Rash, 02/05/17) ketorolac (Verified Allergy, Unknown, Swelling, 02/05/17) levetiracetam (Verified Allergy, Unknown, Swelling, 02/05/17) metronidazole (Verified Allergy, Unknown, Rash, 02/05/17) morphine (Verified Allergy, Unknown, Rash, 02/05/17) nalbuphine (Verified Allergy, Unknown, Swelling, 02/05/17) phenobarbital (Verified Allergy, Unknown, Swelling, 02/05/17) phenytoin (Verified Allergy, Unknown, vomiting, 02/05/17) prochlorperazine (Verified Allergy, Unknown, Swelling, 02/05/17) tramadol (Verified Allergy, Unknown, Rash, 02/05/17) Medications Allergies Coded Allergies Type Severity Reaction Last Updated Verified Iodinated Contrast- Oral and IV Dye Allergy Unknown 02/05/17 Yes NSAIDS (Non-Steroidal Anti-Inflamma Allergy Unknown 02/05/17 Yes carbamazepine Allergy Unknown Swelling 02/05/17 Yes dicyclomine Allergy Unknown Swelling 02/05/17 Yes divalproex sodium Allergy Unknown Rash 02/05/17 Yes ketorolac Allergy Unknown Swelling 02/05/17 Yes levetiracetam Allergy Unknown Swelling 02/05/17 Yes metronidazole Allergy Unknown Rash 02/05/17 Yes morphine Allergy Unknown Rash 02/05/17 Yes nalbuphine Allergy Unknown Swelling 02/05/17 Yes phenobarbital Allergy Unknown Swelling 02/05/17 Yes phenytoin Allergy Unknown vomiting 02/05/17 Yes prochlorperazine Allergy Unknown Swelling 02/05/17 Yes tramadol Allergy Unknown Rash 02/05/17 Yes Active Scripts Medications Dose Route/Sig Max Daily Dose Days Date Category No Current Meds (Miscellaneous Medication) [facility] [place] [place] 08/07/06 Reported Family History Father of colorectal cancer in his 30's. Paternal uncle from colon cancer. Mother's history unknown. Social History Patient reports he drinks occasionally except for the past 2 days when he was drinking as much as he could. Smokes 1 pack per day 30 years. Positive marijuana. Denies other illicit drugs. (Kinjal Borerro) Review of Systems Constitutional: COMPLAINS OF: Fatigue, DENIES: Fever, Weight loss, Chills, Change in appetite Respiratory: COMPLAINS OF: Cough, DENIES: Shortness of breath Cardiovascular: DENIES: Chest pain Gastrointestinal: COMPLAINS OF: Abdominal pain, Black stools, Bloody stools, Diarrhea, Nausea, Vomiting, Hematemesis, DENIES: Heartburn Musculoskeletal: DENIES: Joint pain, Back pain Hematologic/lymphatic: DENIES: Bruising Neurologic: DENIES: Headache Psychiatric: DENIES: Confusion (Kinjal Borrero) GI Exam Vitals I&O Vital Signs Date Time Temp Pulse Resp B/P (MAP) Pulse Ox O2 Delivery O2 Flow Rate FiO2 02/06/17 07:28 98.7 72 20 132/76 (94) 97 02/06/17 03:44 76 20 159/94 (115) 98 02/05/17 23:50 97.9 78 20 157/100 (119) 99 02/05/17 21:40 02/05/17 19:27 88 16 169/112 (131) 99 Room Air 02/05/17 18:39 88 16 163/89 (113) 97 Room Air 02/05/17 18:39 88 16 163/89 (113) 98 Room Air 02/05/17 17:08 98.5 92 18 158/108 (125) 98 Room Air I/O 02/05/17 02/05/17 02/05/17 02/06/17 02/06/17 02/06/17 07:00 15:00 23:00 07:00 15:00 23:00 Intake Total 1000 ml Balance 1000 ml Intake IV Total 1000 ml Imaging Last Impressions Abdomen/Pelvis CT 02/05/171815 Signed Impressions: Service Date/Time: Sunday, February 05, 2017 19:03 - CONCLUSION: 1. Numerous bilateral hyperdense round lesions in both kidneys measuring up to 1.4 cm could represent hyperdense cysts or solid lesions. 2. Otherwise negative noncontrast CT abdomen/pelvis. Demetrio Mcgowan MD Laboratory Test 02/05/17 18:30 02/05/17 19:30 White Blood Count 5.1 TH/MM3 Red Blood Count 4.02 MIL/MM3 Hemoglobin 10.5 GM/DL Hematocrit 31.1 % Mean Corpuscular Volume 77.5 FL Mean Corpuscular Hemoglobin 26.2 PG Mean Corpuscular Hemoglobin Concent 33.8 % Red Cell Distribution Width 18.4 % Platelet Count 409 TH/MM3 Mean Platelet Volume 7.5 FL Neutrophils (%) (Auto) 54.9 % Lymphocytes (%) (Auto) 33.3 % Monocytes (%) (Auto) 8.9 % Eosinophils (%) (Auto) 1.6 % Basophils (%) (Auto) 1.3 % Neutrophils # (Auto) 2.8 TH/MM3 Lymphocytes # (Auto) 1.7 TH/MM3 Monocytes # (Auto) 0.4 TH/MM3 Eosinophils # (Auto) 0.1 TH/MM3 Basophils # (Auto) 0.1 TH/MM3 CBC Comment DIFF FINAL Differential Comment Prothrombin Time 9.7 SEC Prothromb Time International Ratio 0.9 RATIO Activated Partial Thromboplast Time 25.0 SEC Blood Urea Nitrogen 12 MG/DL Creatinine 0.92 MG/DL Random Glucose 103 MG/DL Total Protein 7.1 GM/DL Albumin 3.7 GM/DL Calcium Level 8.6 MG/DL Alkaline Phosphatase 99 U/L Aspartate Amino Transf (AST/SGOT) 33 U/L Alanine Aminotransferase (ALT/SGPT) 49 U/L Total Bilirubin 0.3 MG/DL Sodium Level 136 MEQ/L Potassium Level 3.9 MEQ/L Chloride Level 104 MEQ/L Carbon Dioxide Level 23.8 MEQ/L Anion Gap 8 MEQ/L Estimat Glomerular Filtration Rate 91 ML/MIN Lipase 370 U/L Ethyl Alcohol Level LESS THAN 3 MG/DL Urine Color LIGHT-YELLOW Urine Turbidity CLEAR Urine pH 6.5 Urine Specific [place] 1.015 Urine Protein NEG mg/dL Urine Glucose (UA) NEG mg/dL Urine Ketones NEG mg/dL Urine Occult Blood NEG Urine Nitrite NEG Urine Bilirubin NEG Urine Urobilinogen LESS THAN 2.0 MG/DL Urine Leukocyte Esterase NEG Urine RBC 1 /hpf Urine WBC 1 /hpf Urine Amorphous Sediment RARE Microscopic Urinalysis Comment CULT NOT INDICATED Physical Examination HEENT: Normocephalic; atraumatic; no jaundice. CHEST: CTA CARDIAC: RRR ABDOMEN: Soft, nondistended, nontender; no hepatosplenomegaly; bowel sounds are present in all four quadrants. EXTREMITIES: No clubbing, cyanosis, or edema. SKIN: Normal; no rash; no jaundice. HEARING IMPAIRED TEACHER: No focal deficits; alert and oriented times three. (Kinjal Borrero) Assessment and Plan Plan ASSESSMENT: - GIB, Melena and Rectal bleeding. 3-4 hx of n/v with coffee ground emesis, black stool mixed with large amount of red blood. Denies any hx of PUD. Denies NSAIDs. Has been drinking heavily 3-4 days. Plan for egd/ colonoscopy in am - N/V, Abdominal pain. Constant sharp abdominal pain epigastric area, ruq, rlq. CT as above. Will plan for EGD/Colonoscopy. PPI. Pain management per attending. - Anemia. Mild. HH stable. - Chronic pancreatitis per patient. LFT, Lipase normal. - Hepatitis C. Outpatient follow up - SI. Pt denies this and states that he jokingly made a comment about how much alcohol would it take to kill him. He denies wanting to harm himself PLAN: - Plan for egd/colonoscopy in am - Obtain consents - NPO - Golytely prep - Protonix 40mg IV BID - Monitor CBC - Supportive care - Further recommendations to follow based on results of above - Pt seen and examined by Dr. Plasencia and myself and this note is written on his behalf (Kinjal Borrero) Physician Comments Seen and examined with MARTHA, EGD/Colonoscopy planned for tomorrow. (Barbara Plasencia MD) Kinjal Borrero Feb 06, 2017 10:48 Barbara Plasencia MD Feb 06, 2017 14:15
[2017-02-06 11:14] VITALS: BP 150/109; PULSE 84; RESP 22; TEMP 98.2; O2SAT 98
[2017-02-06] MEDS ORDERED: HYDROmorphone HCL PF 0.5 MG/0.5 ML SYRINGE IV ONE (13:30)
--- NOTE | 2017-02-06 13:41 | HHI.PR ---
Subjective Remarks Patient complaining of abdominal pain he asked for iv morphine Mild nausea no vomiting Patient reported a bloody bowel movement this morning Were awaiting GI consult Objective Vitals Vital Signs Date Time Temp Pulse Resp B/P (MAP) Pulse Ox O2 Delivery O2 Flow Rate FiO2 02/06/17 11:14 98.2 84 22 150/109 (123) 98 02/06/17 10:42 20 02/06/17 07:28 98.7 72 20 132/76 (94) 97 02/06/17 03:44 76 20 159/94 (115) 98 02/05/17 23:50 97.9 78 20 157/100 (119) 99 02/05/17 21:40 02/05/17 19:27 88 16 169/112 (131) 99 Room Air 02/05/17 18:39 88 16 163/89 (113) 97 Room Air 02/05/17 18:39 88 16 163/89 (113) 98 Room Air 02/05/17 17:08 98.5 92 18 158/108 (125) 98 Room Air I/O 02/05/17 02/05/17 02/05/17 02/06/17 02/06/17 02/06/17 07:00 15:00 23:00 07:00 15:00 23:00 Intake Total 1000 ml Balance 1000 ml Intake IV Total 1000 ml Result Diagram: 02/05/17182902/05/171829 Objective Remarks GENERAL: This is a well-nourished, well-developed patient, in no apparent distress. SKIN: No rashes, warm and dry HEAD: Atraumatic. Normocephalic. EYES: Pupils equal round and reactive. Extraocular motions intact. No scleral icterus. ENT: Nose without bleeding, or drainage, Airway patent. NECK: Trachea midline. Supple CARDIOVASCULAR: Regular rate and rhythm without murmurs, gallops, or rubs. RESPIRATORY: Fair air entry bilaterally. No wheezes, rales, or rhonchi. GASTROINTESTINAL: Abdomen soft, non-tender, nondistended. Positive bowel sounds MUSCULOSKELETAL: Extremities without clubbing, cyanosis, or edema. Pedal pulses appreciated NEUROLOGICAL: Awake and alert. Moves all extremity. Normal speech.no focal neurological deficit A/P Assessment and Plan 41-year-old male presents under Carvalho act with a complaint of 2 day history of coffee-ground emesis and bloody stools. 1. GI bleed/hematemesis/hematochezia Hemoccult positive in the ED Nothing by mouth GI consultation Continue monitoring H&H, transfuse prn IV Protonix Percocet for pain 2. Suicidal ideation Patient denies SI at this time Currently under Carvalho act Psychiatry consulted Noam Ivan MD Feb 06, 2017 13:41
[2017-02-06] MEDS ORDERED: HYDROmorphone HCL PF 1 MG/ML VIAL IV ONE (14:30)
[2017-02-06 15:57] VITALS: BP 140/89; PULSE 77; RESP 22; TEMP 98.2; O2SAT 98
[2017-02-06] MEDS ORDERED: PEG (High)/E-LYTE SOLN 4000 ML BTL PO ONE (16:00)
[2017-02-06] MEDS: HYDROmorphone HCL PF 0.5 MG/0.5 ML SYRINGE IV SCH (19:53)
[2017-02-07] MEDS: HYDROmorphone HCL PF 0.5 MG/0.5 ML SYRINGE IV SCH ×6 (00:02→21:34)
[2017-02-07] MEDS: SODIUM CHLORIDE 0.9% FLUSH 10 ML FLUSH IV FLUSH PRN (04:10)
[2017-02-07] MEDS ORDERED: SODIUM CHLORID 0.9% 500 ML IV PRN (06:00)
[2017-02-07] MEDS ORDERED: CHLORHEXIDINE GLUCONATE 2 % 1 PACK (2 CLOTHS) TOPICAL PRN (06:00)
[2017-02-07] MEDS ORDERED: POVIDONE IODINE 5% (ANTISEPSIS KIT) 4 APPLICATIONS EACH NARE PRN (06:00)
[2017-02-07] MEDS ORDERED: LACTATED RINGER'S 1000 ML IV PRN (06:00)
[2017-02-07 08:00] VITALS: BP 140/91; PULSE 84; RESP 20; TEMP 97.7; O2SAT 98
[2017-02-07] MEDS: SODIUM CHLORIDE 0.9% FLUSH 10 ML FLUSH IV FLUSH SCH ×2 (08:27→21:34)
[2017-02-07] MEDS: DOCUSATE SODIUM 50 MG/SENNA 8.6 MG TAB PO SCH ×2 (08:27→21:00)
[2017-02-07] MEDS: PANTOPRAZOLE SODIUM 40 MG VIAL IV PUSH SCH (08:27)
[2017-02-07] MEDS: SODIUM CHLOR 0.9% 1000 ML INJ 1,000 ML IV SCH ×2 (08:57→14:05)
[2017-02-07] MEDS ORDERED: LIDOCAINE HCL 1% PF 5 ML SYRINGE OTHER ONE (12:00)
[2017-02-07] MEDS ORDERED: MIDAZOLAM HCL 2 MG/2 ML VIAL IV ONE (12:00)
[2017-02-07] MEDS ORDERED: PROPOFOL 200 MG/20 ML AMP IV ONE (12:00)
--- NOTE | 2017-02-07 12:41 | HHI.PR ---
Subjective Remarks patient resting in bed looks comfortable however he claimed pain 10 out of 10 with positive rectal bleeding Patient showing extremely inappropriate attitude, he is requesting increasing his Dilaudid, very obvious drug-seeking behavior Objective Vitals Vital Signs Date Time Temp Pulse Resp B/P (MAP) Pulse Ox O2 Delivery O2 Flow Rate FiO2 02/07/17 08:00 97.7 84 20 140/91 (107) 98 02/07/17 03:25 02/06/17 23:29 02/06/17 20:34 02/06/17 17:36 20 02/06/17 15:57 98.2 77 22 140/89 (106) 98 I/O 02/06/17 02/06/17 02/06/17 02/07/17 02/07/17 02/07/17 07:00 15:00 23:00 07:00 15:00 23:00 Intake Total 200 ml Balance 200 ml Intake Oral 200 ml # Voids 4 Result Diagram: 02/05/17182902/05/171829 Objective Remarks GENERAL: This is a well-nourished, well-developed patient, in no apparent distress. SKIN: No rashes, warm and dry HEAD: Atraumatic. Normocephalic. EYES: Pupils equal round and reactive. Extraocular motions intact. No scleral icterus. ENT: Nose without bleeding, or drainage, Airway patent. NECK: Trachea midline. Supple CARDIOVASCULAR: Regular rate and rhythm without murmurs, gallops, or rubs. RESPIRATORY: Fair air entry bilaterally. No wheezes, rales, or rhonchi. GASTROINTESTINAL: Abdomen soft, non-tender, nondistended. Positive bowel sounds MUSCULOSKELETAL: Extremities without clubbing, cyanosis, or edema. Pedal pulses appreciated NEUROLOGICAL: Awake and alert. Moves all extremity. Normal speech.no focal neurological deficit A/P Assessment and Plan 41-year-old male presents under Carvalho act with a complaint of 2 day history of coffee-ground emesis and bloody stools. 1. GI bleed/hematemesis/hematochezia Hemoccult positive in the ED Nothing by mouth Appreciate GI consultation, awaiting EGD and on anoscopy today however patient did not take his colon prep appropriately and he is showing extremely inappropriate attitude Continue monitoring H&H, transfuse prn IV Protonix Percocet for pain 2. Suicidal ideation Patient denies SI at this time Currently under Carvalho act Psychiatry consulted Noam Ivan MD Feb 07, 2017 12:41
--- NOTE | 2017-02-07 13:04 | GIPROC ---
[facility] [address] [facility]. [facility], [address] EGD PROCEDURE REPORT EXAM DATE: 02/07/2017 PATIENT NAME: Yury Yao MR #: [id number] BIRTHDATE: 1975 ATTENDING: Barbara Plasencia MD ORDER #: [id number] WINDING INSPECTOR: Jenny Claros and Tavia Garcia STATUS: inpatient INDICATIONS: The patient is a 41 yr old male here for an EGD due to hematemesis PROCEDURE PERFORMED: EGD w/ biopsy MEDICATIONS: None and Per Anesthesia. TOPICAL ANESTHETIC: CONSENT: The patient understands the risks and benefits of the procedure and understands that these risks include, but are not limited to: sedation, allergic reaction, infection, perforation and/or bleeding. Alternative means of evaluation and treatment include, among others: physical exam, x-rays, and/or surgical intervention. The patient elects to proceed with this endoscopic procedure. medical equipment was checked for proper function. Hand hygiene and appropriate measures for infection prevention was taken. After the risks, benefits and alternatives of the procedure were thoroughly explained, Informed consent was verified, confirmed and timeout was successfully executed by the treatment team. The patient was anesthetized with topical anesthesia and the EC-3490Li (Pedi C) endoscope was introduced through the mouth and advanced to the second portion of the duodenum. Retroflexed views revealed a hiatal hernia The gastroscope was then slowly withdrawn and removed. ESOPHAGUS: There was LA Class A esophagitis noted. A biopsy was performed using cold forceps. Sample sent for histology. STOMACH: The mucosa of the stomach appeared normal. DUODENUM: The duodenal mucosa appeared normal in the bulb and second portion of the duodenum. ADVERSE EVENTS: There were no complications. IMPRESSIONS: 1. There was LA Class A esophagitis noted; biopsy was performed 2. The mucosa of the stomach appeared normal 3. Normal duodenal mucosa in the bulb and second portion of the duodenum 4. Retroflexed views revealed a hiatal hernia RECOMMENDATIONS: 1. Await biopsy results. Biopsy results will not be ready for 7-10 days. If you don't hear from us in two weeks, call our office for biopsy results. 2. Anti-reflux regimen 3. Continue PPI 4. Avoid NSAIDS PATIENT CONDITION: stable DISPOSITION: Inpatient REPEAT EXAM: Return 1 year EGD pending biopsy results Barbara Plasencia MD eSigned: Barbara Plasencia MD 02/07/2017 1:03 PM cc: PATIENT NAME: Yury Yao MR#: [id number]
--- NOTE | 2017-02-07 13:05 | GIPROC ---
[facility] [address] [facility]. [facility], [address] COLONOSCOPY PROCEDURE REPORT EXAM DATE: 02/07/2017 PATIENT NAME: Yury Yao MR #: [id number] BIRTHDATE: 1975 ENDOSCOPIST: Barbara Plasencia MD ORDER #: [id number] COMMUTATOR V RING ASSEMBLER: Jenny Claros and Tavia Garcia STATUS: inpatient INDICATIONS: The patient is a 41 yr old male here for a colonoscopy due to patient's immediate family history of colon cancer PROCEDURE PERFORMED: Colonoscopy, diagnostic MEDICATIONS: None and Per Anesthesia. PREP QUALITY: good PREP TYPE:GoLytely ESTIMATED BLOOD LOSS: None CONSENT: The patient understands the risks and benefits of the procedure and understands that these risks include, but are not limited to: sedation, allergic reaction, infection, perforation and/or bleeding. Alternative means of evaluation and treatment include, among others: physical exam, x-rays, and/or surgical intervention. The patient elects to proceed with this endoscopic procedure. medical equipment was checked for proper function. Hand hygiene and appropriate measures for infection prevention was taken. After the risks, benefits and alternatives of the procedure were thoroughly explained, Informed consent was verified, confirmed and timeout was successfully executed by the treatment team. A digital exam revealed external hemorrhoids The Pentax EC-[id number] endoscope was introduced through the anus and advanced to the cecum, which was identified by both the appendix and ileocecal valve. The instrument was then slowly withdrawn as the colon was fully examined. COLON FINDINGS: Mild diverticulosis was noted in the sigmoid colon. No bleeding was noted from the diverticulosis. Retroflexed views revealed internal hemorrhoids and Retroflexed views revealed small internal hemorrhoids The scope was then completely withdrawn from the patient and the procedure terminated. PROCEDURE WITHDRAWAL TIME:6minutes ADVERSE EVENTS: There were no complications. IMPRESSIONS: 1. Mild diverticulosis was noted in the sigmoid colon 2. Retroflexed views revealed internal hemorrhoids 3. Retroflexed views revealed small internal hemorrhoids 4. Revealed external hemorrhoids RECOMMENDATIONS: 1. Continue surveillance 2. Yearly hemoccult 3. Benefiber 2 tsp daily RECALL: Return 5 years Colonoscopy Barbara Plasencia MD eSigned: Barbara Plasencia MD 02/07/2017 1:05 PM cc:
[2017-02-07 15:53] VITALS: BP 145/90; PULSE 84; RESP 20; TEMP 98; O2SAT 97
[2017-02-07 19:24] VITALS: BP 139/81; PULSE 99; RESP 18; TEMP 98.3; O2SAT 98
[2017-02-08] MEDS: SODIUM CHLOR 0.9% 1000 ML INJ 1,000 ML IV SCH (00:05)
[2017-02-08 00:39] VITALS: BP 127/82; PULSE 92; RESP 18; O2SAT 98
[2017-02-08] MEDS: HYDROmorphone HCL PF 0.5 MG/0.5 ML SYRINGE IV SCH ×2 (01:34→05:48)
[2017-02-08] MEDS: SODIUM CHLORIDE 0.9% FLUSH 10 ML FLUSH IV FLUSH PRN ×2 (01:34→05:48)
[2017-02-08 08:15] VITALS: BP 158/101; PULSE 84; RESP 20; O2SAT 96
--- NOTE | 2017-02-08 10:13 | HHI.PR ---
Subjective Remarks Patient says that severe abdominal pain continues. Denies any hemetemesis or hematochezia. Says he is not been able to eat, however appeared to eat his breakfast. He is requesting IV Dilaudid so he can finish the rest of his pancake. Upon informing patient that he would not receive IV Dilaudid, he briskly walked to berry pick[employer] his shoes, started putting them on, says he is leaving. I did inform her about bilateral renal cysts which will need to be followed up with primary care, possibly malignancy. Patient conveys understanding but is very angry about not getting IV pain meds. Patient says he does not want to get labs drawn because he is a hard stick and it is painful. Objective Vital Signs Date Time Temp Pulse Resp B/P (MAP) Pulse Ox O2 Delivery O2 Flow Rate FiO2 02/08/17 08:15 84 20 158/101 (120) 96 02/08/17 00:39 92 18 127/82 (97) 98 02/07/17 19:24 98.3 99 18 139/81 (100) 98 02/07/17 15:53 98.0 84 20 145/90 (108) 97 I/O 02/07/17 02/07/17 02/07/17 02/08/17 02/08/17 02/08/17 07:00 15:00 23:00 07:00 15:00 23:00 Intake Total 200 ml 100 ml 480 ml 800 ml Balance 200 ml 100 ml 480 ml 800 ml Intake Oral 200 ml 480 ml 800 ml Other 100 ml # Voids 4 3 3 Result Diagram: 02/05/17182902/05/171829 Imaging Last Impressions Abdomen/Pelvis CT 02/05/171815 Signed Impressions: Service Date/Time: Sunday, February 05, 2017 19:03 - CONCLUSION: 1. Numerous bilateral hyperdense round lesions in both kidneys measuring up to 1.4 cm could represent hyperdense cysts or solid lesions. 2. Otherwise negative noncontrast CT abdomen/pelvis. Demetrio Mcgowan MD Objective Remarks GENERAL: Alert and oriented 3. Walking around room area SKIN: Warm and dry. HEAD: Normocephalic. EYES: No scleral icterus. No injection or drainage. NECK: Supple, trachea midline. No cervical lymphadenopathy. CARDIOVASCULAR: Regular rate and rhythm without murmurs, gallops, or rubs. RESPIRATORY: Breath sounds equal bilaterally. No accessory muscle use. GASTROINTESTINAL: Abdomen tender to moderate palpation but distractible. MUSCULOSKELETAL: No cyanosis, or edema. BACK: Nontender without obvious deformity. No CVA tenderness. A/P Assessment and Plan 41-year-old male presents under Carvalho act with a complaint of 2 day history of coffee-ground emesis and bloody stools. // GI bleed/hematemesis/hematochezia Hemoccult positive in the ED Nothing by mouth Appreciate GI consultation, awaiting EGD and on anoscopy today however patient did not take his colon prep appropriately and he is showing extremely inappropriate attitude Continue monitoring H&H, transfuse prn IV Protonix Percocet for pain = Obvious IV narcotic seeking behavior. Patient should be on PPI for reflux. Biopsies are still pending. We'll need to follow-up GI as outpatient. Patient conveys understanding. //Microcytic anemia. -Likely secondary to chronic bleeding from diverticulosis seen on colonoscopy.. Would recommend that he takes iron supplements. //Suicidal ideation Patient denies SI at this time Psychiatry lifted Carvalho act. denies any suicidal ideation. Discharge Planning Patient discharged home AGAINST MEDICAL ADVICE. Patient in good condition. Activity ad jennifer. Diet regular, avoid spicy foods. Patient discharged himself before medications could be ordered. Follow-up with primary care to go over results from CT scan, biopsies. This was discussed prior to discharge, and patient conveyed understanding. Christiano Rice MD Feb 08, 2017 10:13
--- NOTE | 2017-02-08 10:20 | HHI.DS ---
Discharge Summary Admission Date Feb 05, 2017 at 20:57 Discharge Date: Feb 08, 2017 Admitting Diagnosis GI bleed, Carvalho Act (1) Abdominal pain ICD Code: R10.9 - Unspecified abdominal pain (2) Bilateral kidney masses ICD Code: N28.89 - Other specified disorders of kidney and ureter (3) Drug-seeking behavior ICD Code: Z76.5 - Malingerer [conscious simulation] (4) Alcohol abuse with alcohol-induced mood disorder ICD Code: F10.14 - Alcohol abuse with alcohol-induced mood disorder Procedures EGD, colonoscopy. Please see report. Brief History - From Admission 41-year-old male presents to the emergency department under Carvalho act. The patient reportedly told a friend that he wanted to see how much he could drink until he and was taken to [facility] where he was placed under a Carvalho act. The patient reports he has a history of chronic pancreatitis and hepatitis C heavily for the past 2 days to "kill the pain." The patient was [place] [facility] complained of hematemesis and bloody stools as it was brought to the emergency department for evaluation. He reports a 2 day history of coffee-ground emesis and large volumes of blood in his stools. H&H 10.5/31.1. Patient was Hemoccult positive in the emergency department. He complains of severe abdominal pain and has voluntary guarding on physical exam. His pain is worse in the upper quadrants. He reports that he has never had a colonoscopy and that his father of colorectal cancer. CT of the abdomen and pelvis significant only for bilateral kidney lesions. CBC/BMP: 02/05/17 1830 02/05/17 1830 Significant Findings Laboratory Tests Test 02/05/17 18:30 02/05/17 19:30 Red Blood Count 4.02 MIL/MM3 (4.50-5.90) Hemoglobin 10.5 GM/DL (13.0-17.0) Hematocrit 31.1 % (39.0-51.0) Mean Corpuscular Volume 77.5 FL (80.0-100.0) Mean Corpuscular Hemoglobin 26.2 PG (27.0-34.0) Red Cell Distribution Width 18.4 % (11.6-17.2) Monocytes (%) (Auto) 8.9 % (0.0-8.0) Prothrombin Time 9.7 SEC (9.8-11.6) Imaging Last Impressions Abdomen/Pelvis CT 02/05/17 1816 Signed Impressions: Service Date/Time: Sunday, February 05, 2017 19:03 - CONCLUSION: 1. Numerous bilateral hyperdense round lesions in both kidneys measuring up to 1.4 cm could represent hyperdense cysts or solid lesions. 2. Otherwise negative noncontrast CT abdomen/pelvis. Demetrio Mcgowan MD PE at Discharge GENERAL: This is a well-nourished, well-developed patient, in no apparent distress. SKIN: No rashes, warm and dry HEAD: Atraumatic. Normocephalic. EYES: Pupils equal round and reactive. Extraocular motions intact. No scleral icterus. ENT: Nose without bleeding, or drainage, Airway patent. NECK: Trachea midline. Supple CARDIOVASCULAR: Regular rate and rhythm without murmurs, gallops, or rubs. RESPIRATORY: Fair air entry bilaterally. No wheezes, rales, or rhonchi. GASTROINTESTINAL: Abdomen soft, non-tender, nondistended. Positive bowel sounds MUSCULOSKELETAL: Extremities without clubbing, cyanosis, or edema. Pedal pulses appreciated NEUROLOGICAL: Awake and alert. Moves all extremity. Normal speech.no focal neurological deficit Pt update on day of discharge Patient says that severe abdominal pain continues. Denies any hemetemesis or hematochezia. Says he is not been able to eat, however appeared to eat his breakfast. He is requesting IV Dilaudid so he can finish the rest of his pancake. Upon informing patient that he would not receive IV Dilaudid, he briskly walked to pick[employer] his shoes, started putting them on, says he is leaving. I did inform her about bilateral renal cysts which will need to be followed up with primary care, possibly malignancy. Patient conveys understanding but is very angry about not getting IV pain meds. Patient says he does not want to get labs drawn because he is a hard stick and it is painful. Hospital Course Patient did have mild microcytic anemia with hemoglobin 10.5, MCV 77. Did show bilateral renal hyperdense cysts versus masses, which was discussed with the patientshe understands that this is not the cause of his pain, but could be cancer and needs to be followed up as outpatient primary care.Gastroenterology was consulted, patient underwent EGD, colonoscopy. EGD showed gastritis with biopsies pending. Colonoscopy showed diverticulosis without any active bleeding. Would recommend that patient avoid narcotics, avoid NSAIDs, start on iron supplementation. he was tolerating diet on day of discharge, but discharged himself upon being denied IV narcotics. He left the building before medications for PPI, iron, Zofran could be ordered. He does understand that he has bilateral renal cysts with the possibility of cancer, will need to follow with primary care for this, as well as to go over his biopsy results from this admission. for problem-based summary from most recent progress note, please see below. 41-year-old male presents under Carvalho act with a complaint of 2 day history of coffee-ground emesis and bloody stools. // GI bleed/hematemesis/hematochezia Hemoccult positive in the ED Nothing by mouth Appreciate GI consultation, awaiting EGD and on anoscopy today however patient did not take his colon prep appropriately and he is showing extremely inappropriate attitude Continue monitoring H&H, transfuse prn IV Protonix Percocet for pain = Obvious IV narcotic seeking behavior. Patient should be on PPI for reflux. Biopsies are still pending. We'll need to follow-up GI as outpatient. Patient conveys understanding. //Microcytic anemia. -Likely secondary to chronic bleeding from diverticulosis seen on colonoscopy.. Would recommend that he takes iron supplements. //Suicidal ideation Patient denies SI at this time Psychiatry lifted Carvalho act. denies any suicidal ideation. Pt Condition on Discharge: Good Discharge Disposition: Discharge Home Discharge Time: > 30 minutes Christiano Rice MD Feb 08, 2017 10:20
== END 2017-02-08 09:57 | disposition home or self-care (01) ==
LOC: NEPJ 16:49 → NEDA 20:57 → NEPFCDU 21:34
PROVIDERS: ADMIT Internal Medicine; ATTEND Internal Medicine
DX: K57.91 Diverticulosis of intestine, part unspecified, without perforation or abscess with bleeding (principal); D50.9 Iron deficiency anemia, unspecified; R10.13 Epigastric pain; K92.0 Hematemesis; N28.89 Other specified disorders of kidney and ureter; K20.8 Other esophagitis; K64.4 Residual hemorrhoidal skin tags; K64.8 Other hemorrhoids; K44.9 Diaphragmatic hernia without obstruction or gangrene; F10.14 Alcohol abuse with alcohol-induced mood disorder; Z80.0 Family history of malignant neoplasm of digestive organs; K86.1 Other chronic pancreatitis; B19.20 Unspecified viral hepatitis C without hepatic coma; J44.9 Chronic obstructive pulmonary disease, unspecified; F17.210 Nicotine dependence, cigarettes, uncomplicated; R10.31 Right lower quadrant pain; N28.1 Cyst of kidney, acquired; Z76.5 Malingerer [conscious simulation]
CPT/HCPCS: 00740; 43239; 45378; 74176; 80053; 80307; 81001; 82948; 83690; 85025; 85610; 85730; 88305; 93005; 96361; 96374; 96375; 96376; 99285; C9113; G0378; J1170; J2250; J2405; J3010; J7030